=== PATIENT | female | born 1995 | race Caucasian/White ===

== ENCOUNTER 2017-01-17 14:27 | Emergency (ER) | payer MEDICAID ==
[2017-01-17 14:27] VITALS: BMI 33.7
--- NOTE | 2017-01-17 15:10 | ED PDOC ---
Arrival/HPI - General Chief Complaint: Shortness Of Breath Time Seen by Provider: 01/17/17 14:30 - History of Present Illness Narrative History of Present Illness (Text): 01/17/17 15:04 21yo female who denies any PMHx, with 3-4 day duration retrosternal pressure and shortness of breath. Denies any relieving or exacerbating factors. States symptoms are non-exertional. Denies any ripping or tearing sensation or radiation to the back. No other complaints. Past Medical History - Provider Review Nursing Documentation Reviewed: Yes - Infectious Disease Hx of Infectious Diseases: None - Musculoskeletal/Rheumatological Hx Falls: No - Psychiatric Hx Depression: No Hx Emotional Abuse: No Hx Physical Abuse: No Hx Substance Use: No - Suicidal Assessment Feels Threatened In Home Enviroment: No Family/Social History Family/Social History: Unknown Family HX Smoking Status: Never Smoked Hx Alcohol Use: No Hx Substance Use: No Hx Substance Use Treatment: No Allergies/Home Meds Allergies/Adverse Reactions: Allergies No Known Allergies Allergy (Verified 01/17/17 14:35) Home Medications: Home Meds Medication Instructions Recorded Confirmed No Known Home Med 06/21/15 01/17/17 Physical Exam - Physical Exam Narrative Physical Exam (Text): 01/17/17 15:10 - Review of Systems Constitutional: Normal. absent: Fatigue, Weight Change, Fevers Eyes: Normal ENT: denies sore throat, denies tristhmus Respiratory: SOB. absent: Cough, Sputum Cardiovascular: Chest Pain absent: Palpitations, Syncope Gastrointestinal: Normal. absent: Abdominal Pain, Diarrhea, Nausea, Vomiting Genitourinary: Normal. absent: Dysuria, Frequency, Hematuria, vaginal bleeding Musculoskeletal: Normal. absent: Arthralgias, Back Pain, Neck Pain Skin: no rashes, no erythema Neurological: absent: Focal Weakness Endocrine: Normal Hemo/Lymphatic: Normal Psychiatric: No suicidal or homicidal ideations Physical exam Patient appears age appropriate in no distress, speaking full sentences without difficulty - Systems Exam Head: Present: Atraumatic, Normocephalic Pupils: Present: PERRL Extroacular Muscles: Present: EOMI Conjunctiva: Present: Normal Mouth: Present: Moist Mucous Membranes Neck: Present: Normal Range of Motion. No: MIDLINE TENDERNESS, Paraspinal Tenderness Respiratory/Chest: Present: Clear to Auscultation, Good Air Exchange. No: Respiratory Distress, Accessory Muscle Use, Tachypneic Cardiovascular: Present: Regular Rate and Rhythm, Normal S1, S2, Peripheal Pulses Present. No: Murmurs Abdomen: Present: Normal Bowel Sounds. No: Tenderness, Distention, Peritoneal Signs, Rebound, Guarding Back: Present: Normal Inspection. No: Midline Tenderness, Paraspinal Tenderness Upper Extremity: Present: Normal Inspection. No: Cyanosis, Edema Lower Extremity: Present: Normal Inspection. No: Edema Neurological: Present: GCS=15, Speech Normal, cranial nerves II through XII fully intact with no cerebellar abnormality, neurosensory fully intact. No focal neurological deficits. Skin: Present: Warm, Dry, Normal Color. No: Rashes Lymphatic: Present: OX3, NI, NC Psychiatric: Present: Alert, Oriented x 3, Normal Insight, Normal Concentration Vital Signs Temp Pulse Resp BP Pulse Ox 01/17/17 15:10 98.0 F 72 18 122/71 100 01/17/17 15:00 18 100 Medical Decision Making ED Course and Treatment: pt with no cardiac risk factors, co sob and chest pain, currently denies cp and in no distress PERC negative for PE EKG 70 beats per minute, normal sinus. No ST-segment elevations or depressions, no T-wave inversions, normal intervals. AP chest xray, no pneumothorax, no cardiomegaly, costophrenic angles clear, no infiltrates Had a long and extensive d/w patient about f/u with a media production manager for further workup and testing as well as a primary physician. Explained to patient that even though her ER w/u did not show any acute abnormalities, patient still needs further testing which may include an echo, stress test, cardiac cath, or others. Patient refused lab work in the ER. Aware of the risks. Pt states she understands to return to the ER right away for new or worsening symptoms or for inability to f/u with PMD or specialist as instructed. Patient states that she fully agrees with and understands discharge instructions. States that she agrees with the plan and disposition. Verbalized and repeated discharge instructions and plan. I have given the patient opportunity to ask any additional questions. - RAD Interpretation Radiology Orders: 01/17/17 14:55 CHEST PORTABLE [RAD] Stat Disposition/Present on Arrival - Present on Arrival Any Indicators Present on Arrival: No History of DVT/PE: No History of Uncontrolled Diabetes: No Urinary Catheter: No History of Decub. Ulcer: No History Surgical Site Infection Following: None - Disposition Have Diagnosis and Disposition been Completed?: Yes Diagnosis: Chest pain Disposition: HOME/ ROUTINE Disposition Time: 16:08 Patient Plan: Discharge Condition: GOOD Discharge Instructions (ExitCare): Chest Pain (ED) Additional Instructions: PLEASE RETURN TO THE EMERGENCY DEPARTMENT FOR NEW OR WORSENING SYMPTOMS. RETURN RIGHT AWAY IF YOU CANNOT FOLLOW UP WITH YOUR PRIMARY CARE DOCTOR, CLINIC, OR SPECIALIST IN 1-2 DAYS. Referrals: Cecilio Garcia MD [Primary Care Provider] - Follow up with primary Wu,MD Rusty [Staff Provider] - Follow up with primary Forms: [facility] (Spanish), WORK NOTE
[2017-01-17 15:11] VITALS: RESP 18; TEMP 98; O2SAT 100
--- NOTE | 2017-01-17 16:08 | RAD ---
HISTORY: sob COMPARISON: No prior. FINDINGS: LUNGS: No active pulmonary disease. PLEURA: No significant pleural effusion identified, no pneumothorax apparent. CARDIOVASCULAR: Normal OSSEOUS STRUCTURES: No significant abnormalities. VISUALIZED UPPER ABDOMEN: Normal. OTHER FINDINGS: None. IMPRESSION: No active disease.
[2017-01-17 16:31] VITALS: BP 127/74; PULSE 69
--- NOTE | 2017-01-17 23:00 | CARD ---
APPROVED REPORT EKG Measurement Heart [id number] [id number] <Conclusion> Normal sinus rhythm Normal ECG
== END 2017-01-17 16:22 | disposition home or self-care (01) ==
LOC: ED 14:27
DX: R07.9 Chest pain, unspecified (principal)